=== PATIENT | male | born 1950 | race Caucasian/White ===

== ENCOUNTER 2023-02-04 10:41 | Outpatient (CLI) | payer MEDICARE, BC, SELFPAY | END 2023-02-04 10:42 | disposition home or self-care (01) | LOC: AMB 02-07 20:36 | PROVIDERS: PCP Family Medicine; Visit Provider Family Medicine | DX: T63.441A Toxic effect of venom of bees, accidental (unintentional), initial encounter (principal); L50.9 Urticaria, unspecified | CPT/HCPCS: A0425; A0427 ==

== ENCOUNTER 2023-02-04 11:06 | Emergency (ER) | payer MEDICARE, BC, SELFPAY ==
[2023-02-04 11:13] VITALS: BP 149/81; PULSE 95; RESP 18; TEMP 36.1; O2SAT 100; BMI 32.6
--- NOTE | 2023-02-04 11:32 | ED.ALLEREA ---
HPI - Allergic Reaction General Chief complaint: Allergic Reaction Stated complaint: allergic reason Time Seen by Provider: 02/04/23 11:23 History of Present Illness HPI narrative: This 72-year-old male comes in by ambulance because of an allergic reaction. About 2 hours prior to arrival he was trimming some bushes and noticed that there were several ground bees around him. He does not know of any be staying but states that he has diabetes and may not of felt something in his lower extremities. He began to have hives in his lower legs, around his waist, and in the axillary regions. He did not have any shortness of breath or signs of angioedema. He received 50 mg of Benadryl prior to her arrival by ambulance. This was administered intravenously. He states that he feels 100% better. Related Data Home Medications Medication Instructions Recorded Confirmed allopurinol 300 mg tablet 300 mg PO DAILY 02/04/23 02/04/23 atenolol 50 mg tablet 50 mg PO DAILY 02/04/23 02/04/23 doxazosin 4 mg tablet 4 mg PO QPM 02/04/23 02/04/23 ezetimibe 10 mg tablet 10 mg PO DAILY 02/04/23 02/04/23 hydrochlorothiazide 25 mg tablet 25 mg PO DAILY 02/04/23 02/04/23 metformin 1,000 mg tablet 1,000 mg PO BID 02/04/23 02/04/23 semaglutide 0.25 mg or 0.5 mg (2 0.5095 mg subcut 02/04/23 mg/3 mL) subcutaneous pen injector ([employer]) Previous Rx's Medication Instructions Recorded triamcinolone acetonide 0.1 % 1 applic topical BID #30 grams 02/04/23 topical cream Allergies Allergy/AdvReac Type Severity Reaction Status Date / Time No Known Drug Allergies Allergy Verified 02/04/23 11:18 Review of Systems Status of ROS Reports: 10 or more systems reviewed and unremarkable except as noted in History and below Narrative Constitutional: No fevers, no weight gain or loss. Eyes: No discharge. No vision changes. HENT: No congestion, no sore throat, no ear pain. Cardiovascular: No chest pain, no palpitations. Respiratory: No shortness of breath, no wheezes, no cough. Gastrointestinal: No abdominal pain, no vomiting, no diarrhea. Genitourinary: No dysuria, no hematuria. Musculoskeletal: Normal range of motion. Skin: Hives as described above. Neurological: No dizziness, weakness, sensory change, speech change. Endo/Heme/Allergies: No bruising or bleeding. No polydipsia. Pysch: no suicidality, no anxiety, no insomnia. All other systems reviewed and are negative. Exam Narrative: Exam Narrative: Constitutional: Well-developed, well-nourished, no acute distress. HEENT: Normocephalic, atraumatic. Neck: Normal range of motion. Nontender. Supple. Heart: Regular. No murmurs. Normal rate. Intact distal pulses. Lungs: Clear to auscultation. No chest discomfort. No wheezes, rhonchi, or rales. Abdomen: Normal bowel sounds. Nontender. No rebound tenderness. Genitalia: Deferred. Back: No midline tenderness. Normal range of motion. Extremities: Normal range of motion. No injury. Skin: Intact. Hives noted in the axillary regions and lower legs. The patient states that this is much better than previous. Neurologic: No altered sensation. No weakness. Alert and oriented. Psychiatric: No suicidality. No anxiety or depression. No insomnia. Nursing notes and vitals signs are reviewed. Const: Vital Signs, click to edit/add: Vital Signs - 24 hr 02/04/23 11:13 Temperature 97.0 F L Pulse Rate [Right Pulse Oximeter] 95 Respiratory Rate 18 Blood Pressure [Ri ght Upper Arm] 149/81 H Pulse Oximetry 100 Oxygen Delivery Me thod Room Air Course Vital Signs Vital signs: Initial Vital Signs Temperature 97.0 F L 02/04/23 11:13 Temperature Source Temporal Artery Scan 02/04/23 11:13 Pulse Rate 95 02/04/23 11:13 Respiratory Rate 18 02/04/23 11:13 Blood Pressure 149/81 H 02/04/23 11:13 Blood Pressure Mean 103 02/04/23 11:13 Blood Pressure Position Sitting 02/04/23 11:13 Pulse Oximetry 100 02/04/23 11:13 Oxygen Delivery Method Room Air 02/04/23 11:13 Vital Signs Temperature 97.0 F L 02/04/23 11:13 Pulse Rate 95 02/04/23 11:13 Respiratory Rate 18 02/04/23 11:13 Blood Pressure 149/81 H 02/04/23 11:13 Pulse Oximetry 100 02/04/23 11:13 Oxygen Delivery Method Room Air 02/04/23 11:13 Temperature 97.0 F L 02/04/23 11:13 Pulse Rate 95 02/04/23 11:13 Respiratory Rate 18 02/04/23 11:13 Blood Pressure 149/81 H 02/04/23 11:13 Pulse Oximetry 100 02/04/23 11:13 Oxygen Delivery Method Room Air 02/04/23 11:13 MDM - Allergic Reaction MDM Narrative Medical decision making narrative: This patient comes in because of symptoms of allergic reaction. He is uncertain as to what may have triggered this but was outside trimming some bushes where there were numerous ground bees and of course other allergens. The patient states that he is feeling 100% better after receiving Benadryl. He never did have any symptoms of angioedema or airway compromise. He does not have any symptoms of angioedema or anaphylaxis. The patient does have diabetes so a steroid was not administered seeing that he is feeling much better. I did provide a prescription for triamcinolone cream. He is okay to return home. I did recommend using Claritin, Zyrtec, or Tigist as needed and directed. Discharge Plan Discharge Clinical Impression: Allergic reaction Patient Disposition: Home, Self-Care Condition: Improved Additional Instructions: Use steroid cream as needed and directed for symptomatic relief. Use Claritin, Zyrtec, or Tigist also as needed and directed. Follow up with MD or return if worsening. Prescriptions: New triamcinolone acetonide 0.1 % cream 1 applic topical BID Qty: 30 0RF No Action metformin 1,000 mg tablet 1,000 mg PO BID doxazosin 4 mg tablet 4 mg PO QPM allopurinol 300 mg tablet 300 mg PO DAILY hydrochlorothiazide 25 mg tablet 25 mg PO DAILY atenolol 50 mg tablet 50 mg PO DAILY ezetimibe 10 mg tablet 10 mg PO DAILY Ozempic 0.25 mg or 0.5 mg (2 mg/3 mL) pen injector 0.5095 mg subcut Follow Up/Referrals: Jose Hawthorne MD [Primary Care Provider] - Stand Alone Forms: [employer] Info Instructions
== END 2023-02-04 11:45 | disposition home or self-care (01) ==
LOC: ED 11:38
PROVIDERS: Emergency Provider Emergency Medicine Emergency Medical Services; PCP Family Medicine
DX: L23.9 Allergic contact dermatitis, unspecified cause (principal)
CPT/HCPCS: 99283; 99284